=== PATIENT | female | born 1965 | race Caucasian/White ===

== ENCOUNTER → 2019-07-26 | Outpatient (CLI) | payer OTHER, SELFPAY | PROVIDERS: Family Provider Family Medicine; Visit Provider Family Medicine | DX: M25.551 Pain in right hip (principal) | CPT/HCPCS: 73502 ==

== ENCOUNTER 2020-06-01 14:47 | Outpatient (CLI) | payer OTHER, SELFPAY ==
--- NOTE | 2020-06-01 | XR_ITS ---
WS: [id number] Right shoulder, 2 views, 06/01/2020 Clinical Data: SHOULDER PAIN Comparison: None. Findings: No fractures or dislocations are seen. The AC joint is normal. The adjacent right clavicle, right sca pula and ribs are normal. The soft tissues are unremarkable. XR/XR shoulder RT min 2V* [id number] Impression: Negative right shoulder.
== END 2020-06-01 14:48 | disposition home or self-care (01) ==
LOC: RADWPI 14:53
PROVIDERS: PCP Family Medicine; Visit Provider Family Medicine
DX: M25.511 Pain in right shoulder (principal); M75.100 Unspecified rotator cuff tear or rupture of unspecified shoulder, not specified as traumatic
CPT/HCPCS: 73030

== ENCOUNTER 2022-06-24 10:35 | Outpatient (CLI) | payer OTHER, SELFPAY ==
--- NOTE | 2022-06-24 10:43 | XR_ITS ---
WS: [id number] XR knee LT 3V* [id number] REASON FOR EXAM: left knee pain, posterior and patellar FINDINGS: No fracture or focal bone lesion. Mild narrowing of the medial knee joint space with subchondral sclerosis and small marginal osteophyt osis of the tibia and femur. Elongation of the medial and lateral tibial eminences. Lateral knee joint space is relatively well preserved. There is mild subchondral sclerosis. There is mild narrowing of the patellofemoral joint space with moderate subchondral sclerosis and sma ll marginal osteophytosis of the patella. XR/XR knee LT 3V* [id number] IMPRESSION: Osteoarthritis of the left knee as above.
== END 2022-06-24 10:36 | disposition home or self-care (01) ==
PROVIDERS: PCP Family Medicine; Visit Provider Clinical Nurse Specialist Adult Health
DX: M17.12 Unilateral primary osteoarthritis, left knee (principal)
CPT/HCPCS: 73562

== ENCOUNTER 2023-05-01 13:37 | Outpatient (CLI) | payer OTHER, SELFPAY ==
--- NOTE | 2023-05-01 13:46 | MM_ITS ---
WS: [id number] BILATERAL 3D TOMOSYNTHESIS DIGITAL DIAGNOSTIC MAMMOGRAPHY WITH CAD CLINICAL INFORMATION: LT BR LUMP HISTORY: LEFT breast lump COMPARISON: 2016 TECHNIQUE: Bilateral CC, MLO, and ML views. FINDINGS: Scattered fibroglandular densities bilaterally. Palpable marker LEFT breast lower inner quadrant. Nor mal underlying parenchymal tissue. No definite parenchymal abnormalities. Ultrasound is pending. Unremarkable RIGHT breast. ULTRASOUND BREAST LEFT TECHNIQUE: Ultrasound left breast focused area of concern. CLINICAL INFORMATION: LT BR LUMP FINDINGS: Ultrasound LEFT breast at the 8 o'clock position 5 cm from the nipple in the area of concern. Echogen ic ovoid nodule in the area of concern with internal cystic change and heterogeneity. This may repres ent a lipoma but internal heterogeneity is suspicious. This is nonspecific and recommend further eval uation with ultrasound-guided biopsy. Lesion measures approximately 2.1 x 1.1 x 3.2 cm IMPRESSION: MM/[place] [id number] BI-RADS: 4-Suspicious Finding-Biopsy Should Be Considered FOLLOW UP: US Guided Biopsy Recommended
== END 2023-05-01 13:38 | disposition home or self-care (01) ==
LOC: RAD 13:38
PROVIDERS: PCP Family Medicine; Visit Provider Family Medicine
DX: N63.24 Unspecified lump in the left breast, lower inner quadrant (principal)
CPT/HCPCS: 76642; 77062; G0279

== ENCOUNTER 2023-05-21 10:01 | Outpatient (CLI) | payer OTHER, SELFPAY ==
--- NOTE | 2023-05-21 11:45 | US_ITS ---
WS: [id number] ULTRASOUND-GUIDED LEFT BREAST BIOPSY CLINICAL INFORMATION: abnormal finding on mammogram/us COMPARISON: 05/01/2023 FINDINGS: The procedure including risks, benefits, and complications were discussed with the patient who agreed to proceed. Using sterile technique patient was prepped and draped in the usual sterile fashion. Aft er 1% lidocaine utilizing real-time ultrasound guidance 4 14-gauge cores were obtained of the LEFT br east lesion at the 8 o'clock position 5 cm from the nipple. Subsequently a titanium clip was placed i n the biopsy cavity. No immediate complications. Pathology demonstrates Final Diagnosis Left breast, mass at 8:00 position, 5.0 cm from nipple, needle core biopsy: 1. Fragments of benign fat most consistent with lipoma. 2. No malignancy identified IMPRESSION: 1. Uncomplicated ultrasound-guided LEFT breast biopsy. 2. The pathology demonstrates benign fat most consistent with lipoma. No malignancy. US/[place] [id number] BI-RADS: 2-Benign FOLLOW UP: 1 Year Follow-up Recommend return to annual screening mammography.
== END 2023-05-21 10:02 | disposition home or self-care (01) ==
LOC: RAD 10:04
PROVIDERS: PCP Family Medicine; Visit Provider Family Medicine
DX: N63.24 Unspecified lump in the left breast, lower inner quadrant (principal); R92.8 Other abnormal and inconclusive findings on diagnostic imaging of breast
CPT/HCPCS: 19083; 88305